=== PATIENT | female | born 1995 | race Caucasian/White ===

== ENCOUNTER 2019-07-05 20:17 | Emergency (ER) | payer OTHER ==
[~2019-07-05] VITALS: Ht 167.6 cm; Wt 63.6 kg
[2019-07-05] MEDS ORDERED: KEFLEX500 M1 PO (21:01)
[2019-07-05 21:10] VITALS: BP 137/82
== END 2019-07-05 21:10 | disposition home or self-care (01) ==
LOC: ED 20:17
DX: S91.331A Puncture wound without foreign body, right foot, initial encounter (principal); W45.8XXA Other foreign body or object entering through skin, initial encounter

== ENCOUNTER 2019-10-24 18:28 | Emergency (ER) | payer OTHER ==
[~2019-10-24 18:28] MED LIST: KEFLEX500 M1 PO
[2019-10-24] MEDS ORDERED: AMOXICILLIN500 M2 PO (18:47)
[2019-10-24] MEDS ORDERED: PRENATA4 PO (18:50)
[2019-10-24] MEDS ORDERED: VITAMIN C500 MG PO (18:50)
[2019-10-24 18:51] VITALS: BP 136/86
== END 2019-10-24 19:06 | disposition home or self-care (01) ==
LOC: ED 18:28
DX: O26.893 Other specified pregnancy related conditions, third trimester (principal); R59.0 Localized enlarged lymph nodes; Z3A.31 31 weeks gestation of pregnancy

== ENCOUNTER 2021-04-01 00:29 | Emergency (ER) | payer OTHER ==
[~2021-04-01 00:29] MED LIST changes: +AMOXICILLIN500 M2 PO; +PRENATA4 PO; +VITAMIN C500 MG PO
[2021-04-01 01:51] LABS: HEMATOCRIT 37.4 % (37.0-47.0); HEMOGLOBIN 11.8 g/dl (12.0-16.0); IMMATURE GRANULOCYTES 0.4 % (0.0-5.0); MEAN CELL VOLUME 95.2 fL CALC (80.0-100.0); MEAN CORPUSCULAR HGB CONC 31.6 g/dL CAL (32.0-36.0); NEUT# 9.59 thou/uL (2.00-7.15); RED BLOOD COUNT 3.93 mill/uL (4.20-5.60); RED CELL DISTRI WIDTH 12.6 % (11.5-15.5)
[2021-04-01 01:52] LABS: URINE BLOOD DIPSTICK LARGE (NEGATIVE); URINE COLOR YELLOW; URINE GLUCOSE - DIPSTICK NEGATIVE (NEGATIVE); URINE LEUK ESTERASE TRACE (NEGATIVE); URINE PH 7.5 (4.5-8.0); URINE PROTEIN - DIPSTICK TRACE mg/dL (NEG-TRACE); URINE SPECIFIC GRAVITY 1.015
[2021-04-01 02:05] LABS: URINE BILIRUBIN - DIPSTICK MODERATE (NEGATIVE); URINE NITRITE - DIPSTICK NEGATIVE (Negative)
[2021-04-01 02:06] LABS: ALBUMIN 4.2 g/dL (3.2-5.0); ALKALINE PHOSPHATASE 170 u/l (38-126); AMYLASE 76 u/l (30-110); ANION GAP 13 (6-22 (CALC)); BILIRUBIN, TOTAL 2.2 mg/dL (0.0-1.4); BUN 12 mg/dL (7-17); BUN/CREATININE RATIO 15 (12-20 (CALC)); CARBON DIOXIDE 31 mmol/l (22-30); CHLORIDE 100 mmol/l (95-108); CREATININE 0.8 mg/dL (0.5-1.0); GFR > 60 ML/MIN (>=60 (CALC)); GFR FOR AFR.AMER. > 60 ML/MIN (>=60 (CALC)); LIPASE 117 u/l (23-300); POTASSIUM 3.6 mmol/l (3.5-5.1); SGOT/AST 203 u/l (14-36); SODIUM 140 mmol/l (137-146); TOTAL PROTEIN 7.3 g/dL (6.3-8.2)
[2021-04-01 02:06] LABS: URINE KETONE NEGATIVE (NEGATIVE)
[2021-04-01 02:08] LABS: URINE BACTERIA MODERATE hpf; URINE EPITHELIAL CELLS MANY EPI/hpf (0-FEW)
[2021-04-01 08:15] VITALS: BP 140/81
== END 2021-04-01 08:15 | disposition left against medical advice (07) ==
LOC: ED 00:29
PROVIDERS: Emergency Medicine
DX: K80.20 Calculus of gallbladder without cholecystitis without obstruction (principal); R79.89 Other specified abnormal findings of blood chemistry; J45.909 Unspecified asthma, uncomplicated; Z91.19 Patient's noncompliance with other medical treatment and regimen
CPT/HCPCS: Q9967; S0164

== ENCOUNTER 2021-04-09 20:22 | Emergency (ER) | payer OTHER ==
[2021-04-09 21:22] LABS: ALBUMIN 4.3 g/dL (3.2-5.0); ALKALINE PHOSPHATASE 169 u/l (38-126); AMYLASE 73 u/l (30-110); BILIRUBIN, TOTAL 1.4 mg/dL (0.0-1.4); BUN 12 mg/dL (7-17); BUN/CREATININE RATIO 17 (12-20 (CALC)); CARBON DIOXIDE 29 mmol/l (22-30); CHLORIDE 101 mmol/l (95-108); CREATININE 0.7 mg/dL (0.5-1.0); GFR > 60 ML/MIN (>=60 (CALC)); GFR FOR AFR.AMER. > 60 ML/MIN (>=60 (CALC)); LIPASE 155 u/l (23-300); SGOT/AST 91 u/l (14-36); SODIUM 140 mmol/l (137-146); TOTAL PROTEIN 7.8 g/dL (6.3-8.2)
[2021-04-09 21:25] LABS: HEMATOCRIT 40.9 % (37.0-47.0); HEMOGLOBIN 12.8 g/dl (12.0-16.0); IMMATURE GRANULOCYTES 0.2 % (0.0-5.0); MEAN CELL VOLUME 95.6 fL CALC (80.0-100.0); MEAN CORPUSCULAR HGB 29.9 pG CALC (26.0-32.0); MEAN CORPUSCULAR HGB CONC 31.3 g/dL CAL (32.0-36.0); NEUT# 8.16 thou/uL (2.00-7.15); RED BLOOD COUNT 4.28 mill/uL (4.20-5.60); RED CELL DISTRI WIDTH 13.2 % (11.5-15.5)
[2021-04-09 21:31] LABS: ANION GAP 15 (6-22 (CALC)); POTASSIUM 4.6 mmol/l (3.5-5.1)
[2021-04-09] MEDS ORDERED: LORTAB5 PO (22:41)
[2021-04-09] MEDS ORDERED: PHENERGAN25 MG RE (22:41)
[2021-04-09 22:57] VITALS: BP 105/54
== END 2021-04-10 00:09 | disposition home or self-care (01) ==
LOC: ED 20:22
PROVIDERS: Family Medicine
DX: K80.20 Calculus of gallbladder without cholecystitis without obstruction (principal); J45.909 Unspecified asthma, uncomplicated; Z20.822 Contact with and (suspected) exposure to COVID-19
CPT/HCPCS: Q9967

== ENCOUNTER 2021-04-10 09:13 | Emergency (ER) | payer OTHER ==
[~2021-04-10 09:13] MED LIST changes: +LORTAB5 PO; +PHENERGAN25 MG RE
[2021-04-10 09:55] VITALS: BP 132/70
== END 2021-04-10 09:55 | disposition home or self-care (01) ==
LOC: ED 09:13
DX: K80.20 Calculus of gallbladder without cholecystitis without obstruction (principal); J45.909 Unspecified asthma, uncomplicated